=== PATIENT | male | born 1990 | race Caucasian/White ===

== ENCOUNTER 2017-04-20 18:31 | Emergency (ER) | payer SELFPAY ==
[~2017-04-20] VITALS: Ht 185.4 cm; Wt 82.2 kg
[~2017-04-20 18:31] MED LIST: CEPHALEXIN500 M1 PO; NO HOME MEDICATIONS; NORCO 325 MG-51 TAB PO
[2017-04-20 18:38] VITALS: TEMP 97.7
[2017-04-20] MEDS ORDERED: PERCOCET 325 MG1 TA2 PO (20:23)
[2017-04-20 21:01] VITALS: BP 132/67; PULSE 75
== END 2017-04-20 21:04 | disposition home or self-care (01) ==
LOC: COL.ER 18:31
DX: S52.502A Unspecified fracture of the lower end of left radius, initial encounter for closed fracture (principal); V00.131A Fall from skateboard, initial encounter; Y93.51 Activity, roller skating (inline) and skateboarding; Y92.480 Sidewalk as the place of occurrence of the external cause